=== PATIENT | female | born 2000 | race Caucasian/White ===

== ENCOUNTER 2019-02-02 22:47 | Emergency (ER) | payer OTHER ==
[2019-02-02 22:52] VITALS: BP 121/72; PULSE 84; TEMP 98.6; BMI 21.7
--- NOTE | 2019-02-03 05:09 | PDOC ---
Documentation entered by Howard Carrion SCRIBE, acting as scribe for Nathaniel Garduno MD. Nathaniel Garduno MD: This documentation has been prepared by the Murali adams Aiswarya, SCRIBE, under my direction and personally reviewed by me in its entirety. I confirm that the documentation accurately reflects all work, treatment, procedures, and medical decision making performed by me. History of Present Illness - General Chief Complaint: Pain, Acute Stated Complaint: RIGHT LEG REDNESS/PAIN Time Seen by Provider: 02/02/19 22:49 History Source: Patient Exam Limitations: No Limitations - History of Present Illness Initial Comments: 02/02/19 23:13 The patient is a 18 year old female, with no significant PMH, who presents to the emergency department with right lower leg bite that occurred a few days ago. She went to Urgent Care 3 days ago where she was prescribed doxycycline ( currently on 3rd day) and noticed redness, and swelling improved. Patient states she went to PCP today to drain fluctulance. Patient states she came into ER for further evaluation. Patient denies numbness or tingling. Denies chest pain, shortness of breath, headache and dizziness.Denies fever, chills, nausea, vomit, Allergies: NKDA Past surgical history: None reported Social history: None reported PCP:Danyelle Byrd Past History - Past Medical History Allergies/Adverse Reactions: Allergies Allergy/AdvReac Type Severity Reaction Status Date / Time No Known Allergies Allergy Verified 02/02/19 22:48 Home Medications: Ambulatory Orders NK [No Known Home Medication] 02/02/19 COPD: No - Suicide/Smoking/Psychosocial Hx Smoking History: Never smoked Hx Alcohol Use: No Drug/Substance Use Hx: No Review of Systems - Review of Systems Able to Perform ROS?: Yes Comments:: 02/02/19 23:13 GENERAL/CONSTITUTIONAL: No fever or chills. No weakness. HEAD, EYES, EARS, NOSE AND THROAT: No change in vision. No ear pain or discharge. No sore throat. CARDIOVASCULAR: No chest pain or shortness of breath. RESPIRATORY: No cough, wheezing, or hemoptysis. GASTROINTESTINAL: No nausea, vomiting, diarrhea or constipation. GENITOURINARY: No dysuria, frequency, or change in urination. MUSCULOSKELETAL: No joint or muscle swelling or pain. No neck or back pain. SKIN:+ Right foot bite NEUROLOGIC: No headache, vertigo, loss of consciousness, or change in strength/ sensation. ENDOCRINE: No increased thirst. No abnormal weight change. HEMATOLOGIC/LYMPHATIC: No anemia, easy bleeding, or history of blood clots. ALLERGIC/IMMUNOLOGIC: No hives or skin allergy. *Physical Exam - Vital Signs Last Vital Signs Temp Pulse Resp BP Pulse Ox 98.6 F 84 16 121/72 100 02/02/19 22:48 02/02/19 22:48 02/02/19 22:48 02/02/19 22:48 02/02/19 22:48 - Physical Exam Comments: 02/02/19 23:14 GENERAL: Awake, alert, and fully oriented, in no acute distress HEAD: No signs of trauma LUNGS: Breath sounds equal, clear to auscultation bilaterally. No wheezes, and no crackles HEART: Regular rate and rhythm, normal S1 and S2, no murmurs, rubs or gallops EXTREMITIES: +Mild edema to right lower extremity redness improved from previous. No fluctuence. NEUROLOGICAL: Cranial nerves II through XII grossly intact. Normal speech, normal gait SKIN: Warm, Dry Medical Decision Making - Medical Decision Making 02/03/19 05:09 healing cellulitis continue abx return to ED for signs of abscess or systemic infection *DC/Admit/Observation/Transfer Diagnosis at time of Disposition: Cellulitis Qualifiers: Site of cellulitis: extremity Site of cellulitis of extremity: lower extremity Laterality: right Qualified Code(s): L03.115 - Cellulitis of right lower limb - Discharge Dispostion Condition at time of disposition: Stable - Referrals Referrals: Danyelle Byrd MD [Primary Care Provider] - - Patient Instructions Additional Instructions: please continue current management. return to ER for another check tomorrow - Post Discharge Activity
== END 2019-02-02 22:58 | disposition home or self-care (01) ==
LOC: FER 22:47
DX: L03.115 Cellulitis of right lower limb (principal); W57.XXXA Bitten or stung by nonvenomous insect and other nonvenomous arthropods, initial encounter; Y93.89 Activity, other specified; Y92.89 Other specified places as the place of occurrence of the external cause
CPT/HCPCS: 99281-25